=== PATIENT | male | born 1975 | race Caucasian/White ===

== ENCOUNTER 2022-07-23 10:09 | Emergency (ER) | payer BC, SELFPAY ==
--- NOTE | ~2022-07-23 | XR_ITS ---
EXAMINATION: XR chest 1V portable INDICATION: Chest pain after fall TECHNIQUE: Portable AP chest at 1019 hours COMPARISON: None available FINDINGS: The lungs are free of acute opacities. No pleural effusion or pneumothorax. The cardiomedia stinal silhouette is normal. There is scoliosis of the upper thoracic spine. IMPRESSION: 1. No acute cardiopulmonary abnormality. Reviewed, dictated and finalized at location A.
--- NOTE | ~2022-07-23 | CT_ITS ---
EXAMINATION: CT brain wo con INDICATION: Headache COMPARISON: None TECHNIQUE: Standard unenhanced head CT. The dose-length product (DLP) was 681.00 mGy-cm. The mA was a djusted according to patient size. Iterative reconstruction technique was employed. FINDINGS: There is no intracranial hemorrhage, acute infarction, or abnormal mass lesion. The ventric les are normal. There is no abnormal mass effect or midline shift. The andre-white matter differentiat ion is normal. The basal cisterns are patent. The orbits are normal. The paranasal sinuses, mastoids and calvarium are normal. IMPRESSION: 1. No acute intracranial abnormality. Reviewed, dictated and finalized at location A.
--- NOTE | ~2022-07-23 | CT_ITS ---
EXAMINATION: CT cervical spine wo con DATE: 07/23/2022 10:31 INDICATION: Neck pain TECHNIQUE: Computed tomography (CT) of the cervical spine was performed without intravenous contrast. The dose-length product (DLP) was 451.71 mGy-cm. Automated exposure control and iterative reconstruc tion technique were employed. COMPARISON: None FINDINGS: There is mild loss of intervertebral disc space height at C5-6. There is mild loss of verte bral body height at C6, likely degenerative. There are anterior and posterior endplate osteophytes at C5-6 and C6-7. The odontoid is intact. The prevertebral soft tissues are normal. There is mild facet and uncovertebral joint osteoarthritis. IMPRESSION: 1. Mild cervical spondylosis without acute findings. Reviewed, dictated and finalized at location A.
[2022-07-23 10:10] VITALS: BP 112/82; PULSE 88; RESP 16; TEMP 36.8; O2SAT 100
[2022-07-23] MEDS: TETANUS,DIPHTHERIA,AC PERTUSSIS ADULT (0.5 ML) BOOSTRIX IM (10:51)
[2022-07-23 10:55] VITALS: BP 112/82; PULSE 71; RESP 18; TEMP 37; O2SAT 99
[2022-07-23 10:57] VITALS: PULSE 92
[2022-07-23 11:03] VITALS: BP 124/78; PULSE 92; RESP 18; O2SAT 98
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
[2022-07-23] MEDS: ONDANSETRON HCL ODT 4 MG TABLET PO (13:39)
[2022-07-23] MEDS: MECLIZINE HCL 25 MG TABLET PO (13:39)
--- NOTE | 2022-07-23 13:40 | PC.NURSE ---
dc delayed d/t pt becoming dizzy. pt described the room as spinning when trying to exit the bed. provider aware, order for Zofran and meclizine received
[2022-07-23 13:45] VITALS: BP 138/86; PULSE 80; RESP 16; O2SAT 99
== END 2022-07-23 13:49 | disposition home or self-care (01) ==
LOC: ANHED 11:29
PROVIDERS: Emergency Provider Emergency Medicine
DX: S06.0X0A Concussion without loss of consciousness, initial encounter (principal); S40.211A Abrasion of right shoulder, initial encounter; S30.810A Abrasion of lower back and pelvis, initial encounter; Z23 Encounter for immunization; V18.4XXA Pedal cycle driver injured in noncollision transport accident in traffic accident, initial encounter; Y93.55 Activity, bike riding
CPT/HCPCS: 70450; 71045; 72125; 90471; 90715; 99284; A9270